=== PATIENT | female | born 1955 | race Caucasian/White ===

== ENCOUNTER 2024-06-15 11:25 | Day surgery (SDC) | payer MEDICARE, BC, SELFPAY ==
--- NOTE | 2024-06-15 | PATH_ITS ---
[facility] Accession Number: [id number] No. of containers..02 Tissue . 01 Material submitted: . PART A: stomach - ANTRUM PART B: esophagus, E-G Junction - GE JUNCTION . 01 Diagnosis: Part A: ANTRUM: Gastric oxyntic mucosa with no diagnostic alterations. No Helicobacter organisms identified on H/E stain. No intestinal metaplasia, dysplasia, or malignancy identified. . Part B: GE JUNCTION: Squamous and squamocolumnar junctional mucosa with increased intraepithelial eosinophils. See comment. No goblet cell metaplasia or infectious organisms identified. . Specimen Comments: Eosinophils are present in increased numbers of focally up to greater than 100 per high power microscopic field. These histologic features in the distal esophagus may be due to reflux, although eosinophilic esophagitis also enters the differential. Clinical correlation is recommended for further evaluation. [facility] 06/19/2024 1613 Local . 01 Electronically signed: . Hector Dawn MD, Pathologist NPI- [id number] . 01 Gross description: . Part A: ANTRUM: Received in formalin are 2 fragment(s) of brown, soft tissue measuring 0.2 x 0.2 x 0.2 cm to 0.4 x 0.2 x 0.2 cm submitted entirely in 1 cassette(s) . Part B: GE JUNCTION: Received in formalin are 3 fragment(s) of brown, soft tissue measuring 0.1 x 0.1 x 0.1 cm to 0.2 x 0.1 x 0.1 cm submitted entirely in 1 cassette(s) /KRISTOPHER 06/19/2024 1613 Local . 01 Microscopic: . Part B: GE JUNCTION: An ABPAS stain was performed to evaluate for goblet cell metaplasia and is negative. The control stains appropriately. . 01 Pathologist provided ICD-10: K21.00, R13.10 . 01 CPT . 038628, 033686, 427236 Specimen Comment: A courtesy copy of this report has been sent to [facility] Performed at: [address] [id number] MD Hector Dawn MD Phone: [phone]
[2024-06-15 11:43] VITALS: BP 143/74; PULSE 74; RESP 12; TEMP 36.2; O2SAT 100
--- NOTE | 2024-06-15 12:24 | PM.HP.1 ---
History of Present Illness History of Present Illness Date Patient Seen: 06/15/24 Time Patient Seen: 12:24 Date of Onset of Symptoms: 06/15/24 Chief complaint: SDC Narrative: 68 year old wf with dysphagia to solids, but not liquids. Has trouble handling her own saliva after eating at times. Has not had an EGD before, or an UGI fluoroscopy study. Last colonoscopy was normal and she is not due, yet. [facility] Surgical History History of bladder surgery History of hysterectomy Social History Smoking Status: Former smoker alcohol intake: current Meds Home Medications and Allergies Home Medications Medication Instructions Recorded Confirmed Type esomeprazole magnesium 40 mg 40 mg PO BID 06/15/24 06/15/24 History capsule,delayed release estradiol 1 mg tablet 1 mg PO DAILY 06/15/24 06/15/24 History levothyroxine 150 mcg tablet 150 mcg PO DAILY 06/15/24 06/15/24 History montelukast 10 mg tablet 10 mg PO ONCE PM 06/15/24 06/15/24 History trospium 20 mg tablet 20 mg PO BID 06/15/24 06/15/24 History Allergies Allergy/AdvReac Type Severity Reaction Status Date / Time rofecoxib [From Vioxx] Allergy Swelling Verified 06/15/24 11:36 of Lip/Tongue/Throat Review of Systems Review of Systems ROS: Yes All systems reviewed with the patient and are negative except as otherwise documented Exam Vital Signs (past 8 hours): - 06/15/24 11:43 Temperature 97.1 F L Pulse Rate 74 Respiratory Rate 12 Blood Pressure 143/74 H Pulse Oximetry 100 Oxygen Delivery Method Room Air Oxygen Delivery Method Room Air Narrative Exam Narrative: Gen: NAD, sitting comfortably in bed, appears well HEENT: Sclera are anicteric, head is normocephalic and atraumatic, trachea is midline. CV: RRR, no JVD Resp: clear to auscultation bilaterally, equal chest wall movement bilaterally Abd: soft, nontender, normoactive bowel sounds Ext: no edema, full range of motion Neuro: Cranial nerves II-XII grossly intact, no focal deficits Skin: No erythema or ecchymosis Assessment & Plan Assessment and plan (1) GERD (gastroesophageal reflux disease): Qualifiers: Esophagitis presence: without esophagitis Qualified Code(s): K21.9 - Gastro-esophageal reflux disease without esophagitis Status: Acute (2) Dysphagia: Qualifiers: Dysphagia type: unspecified Qualified Code(s): R13.10 - Dysphagia, unspecified Status: Acute Assessment & Plan narrative: Risks, benefits, alternatives to EGD with biopsy and possible balloon dilation were explained to the patient including but not limited to bleeding, pain, perforation, anesthesia complications, or airway complications. Patient agrees to proceed. Time-Based Coding :: [TOTAL MINUTES] spent with patient and on the chart (including review of chart, obtaining history, exam, reviewing outside data, placing orders, documenting exam and treatment plan, and counseling patient) on [DATE].
--- NOTE | 2024-06-15 12:44 | P.OP.ENDO_ITS ---
Operative Date/Time/Diagnoses Date of procedure: 06/15/24 Time of procedure: 12:44 Pre-op diagnosis: Dysphagia, solids more than liquids Post-op diagnosis: same Procedure & Clinicians Study performed: EGD with biopsies of antrum and GE junction Same procedure as scheduled: Yes Indications: Dysphagia Surgeon: Alvaro Sheffield Procedure Notes SCOAP/Timeout: Performed Procedure in detail: Patient was brought to the operating room suite. Mac was induced. Placed in left lateral decubitus position. Bite block placed. Gastroscope was inserted into the 2nd portion of the duodenal through the mouth. A duodenal appeared normal. There are some mild antral gastritis. Biopsies were performed in the pre-pyloric region antrum. Retroflexed view showed a small hiatal hernia. Z- line was located 35 cm from the incisors. Biopsies of the GE junction were performed and sent. The esophagus was widely patent without any significant evidence of strictures, vascular anomalies, or webs. Sedation minutes: 4 Findings: gastritis and hiatal hernia Specimen(s): other (1. Antrum 2. GE Junction) Complications: none Impression: gastritis, GERD Post-procedure Recommendations: Reflux diet and Other recommendation (UGI) Plan for aftercare: home Follow up: as needed Disposition: PACU
[2024-06-15 12:50] VITALS: BP 122/74; PULSE 77; RESP 16; TEMP 36.2; O2SAT 98
[2024-06-15 12:53] VITALS: BP 123/83; PULSE 80; RESP 16; TEMP 36.2; O2SAT 98
[2024-06-15 12:59] VITALS: BP 122/75; PULSE 75; RESP 16; O2SAT 98
[2024-06-15 13:09] VITALS: BP 130/76; PULSE 71; RESP 16; TEMP 36.2; O2SAT 98
== END 2024-06-15 13:30 | disposition home or self-care (01) ==
PROVIDERS: Referring Provider Surgery; Visit Provider Surgery
PROC: 0DJ08ZZ Inspection of Upper Intestinal Tract, Via Natural or Artificial Opening Endoscopic (ICD-10-PCS; CPT 43239; principal; 2024-06-15 12:30)
DX: R13.10 Dysphagia, unspecified (principal); K29.70 Gastritis, unspecified, without bleeding; K44.9 Diaphragmatic hernia without obstruction or gangrene
CPT/HCPCS: 43239; J2704